=== PATIENT | female | born 1995 | race Caucasian/White ===

== ENCOUNTER 2017-01-03 00:23 | Emergency (ER) | payer MEDICAID ==
[~2017-01-03] VITALS: Ht 162.6 cm; Wt 83.9 kg
[2017-01-03 00:34] VITALS: BP 133/71
== END 2017-01-03 04:58 | disposition left against medical advice (07) ==
LOC: ER 00:25
DX: M25.532 Pain in left wrist (principal); M25.512 Pain in left shoulder; M54.2 Cervicalgia; V49.9XXA Car occupant (driver) (passenger) injured in unspecified traffic accident, initial encounter; Y93.89 Activity, other specified; Y99.8 Other external cause status; Y92.488 Other paved roadways as the place of occurrence of the external cause; Z53.21 Procedure and treatment not carried out due to patient leaving prior to being seen by health care provider
CPT/HCPCS: 73110